=== PATIENT | female | born 1945 | race Caucasian/White ===

== ENCOUNTER 2016-11-25 03:35 | Emergency (ER) | payer MEDICARE, OTHER ==
[2016-11-25] MEDS ORDERED: Sodium Chloride 0.9% 1,000 ML IV ONE ×2 (04:01→05:25)
[2016-11-25] MEDS ORDERED: Sodium Chloride 0.9% 10 ML Syringe FLUSH PRN (04:12)
[2016-11-25 04:43] VITALS: BP 142/69
--- NOTE | 2016-11-25 06:13 | EDM.PDOC ---
ED HPI SEIZURE COMPLAINT - General Chief Complaint: Syncope Stated Complaint: Syncopal spell, diarrhea Time Seen by Provider: 11/25/16 04:11 Source of Information: Reports: Patient History Limitations: Reports: No limitations - History of Present Illness INITIAL COMMENTS - FREE TEXT/NARRATIVE: Patient started taking a bowel prep yesterday afternoon for a scheduled colonoscopy on Tuesday. She really has felt fine throughout, however while sitting on her toilet this morning she had an episode in which she fainted and she fell. She did hit her head. She has no complaints today of headache. Some minimal complaints of nausea. No emesis, fever, chills, recent illness. She has no other complaints. Symptom Onset Date: 11/25/16 Symptom Onset Time: 04:00 Timing/Duration: Reports: intermittent Event Occurred (Where): home Event (Witnessed/Unwitnessed): witnessed Severity: mild Context: Reports: new/change in medications Pre Event Symptom(s): Reports: nausea/vomiting Event Symptoms: Reports: no other symptoms - Related Data Allergies/ADRs: Allergies Allergy/AdvReac Type Severity Reaction Status Date / Time No Known Allergies Allergy Verified 11/25/16 03:53 Home Meds: Home Meds Clopidogrel Bisulfate [Clopidogrel] 75 mg PO DAILY 07/02/14 [History] atorvaSTATin [Lipitor] 10 mg PO BEDTIME 07/02/14 [History] Aspirin [Halfprin] 81 mg PO DAILY 11/24/16 [History] Carvedilol 1 tab PO QPM 11/24/16 [History] Carvedilol 1.5 tab PO QAM 11/24/16 [History] Cholecalciferol (Vitamin D3) [Vitamin D3] 2,000 unit PO DAILY 11/24/16 [History] Lisinopril 10 mg PO DAILY 11/24/16 [History] Past Medical History HEENT History: Reports: Cataract, Other (see below) Other HEENT History: blepharitis Cardiovascular History: Reports: CAD, Heart Failure, Hypertension, Other (see below) Other Cardiovascular History: tachycardia. non-stemi Gastrointestinal History: Reports: Other (see below) Other Gastrointestinal History: anal fissure Musculoskeletal History: Reports: Other (see below) Other Musculoskeletal History: bone disorder Hematologic History: Reports: Other (see below) Other Hematologic History: thrombocytopenia - Past Surgical History GI Surgical History: Reports: Colonoscopy Female Surgical History: Reports: D&C Social & Family History - Tobacco Use Smoking Status *Q: Never Smoker Second Hand Smoke Exposure: No - Alcohol Use Days Per Week of Alcohol Use: 1 Number of Drinks Per Day: 1 Total Drinks Per Week: 1 - Recreational Drug Use Recreational Drug Use: No ED ROS GENERAL - Review of Systems Review Of Systems: See Below Constitutional: Reports: no symptoms HEENT: Reports: No symptoms Respiratory: Reports: No Symptoms Cardiovascular: Reports: No symptoms Endocrine: Reports: no symptoms GI/Abdominal: Reports: Nausea : Reports: no symptoms Musculoskeletal: Reports: no symptoms Skin: Reports: no symptoms Neurological: Reports: Syncope Psychiatric: Reports: No symptoms Hematologic/Lymphatic: Reports: no symptoms Immunologic: Reports: no symptoms - Physical Exam Exam: See Below Exam Limited By: No limitations General Appearance: alert, WD/WN, no apparent distress Eye Exam: bilateral eye: EOMI, PERRL Ears: normal TMs Nose: normal inspection Throat/Mouth: Normal inspection, Normal oropharynx Head Exam: atraumatic, normocephalic Neck: normal inspection, supple, non-tender, full range of motion Respiratory/Chest: no respiratory distress, lungs clear, normal breath sounds, no accessory muscle use, chest non-tender Cardiovascular: normal peripheral pulses, regular rate, rhythm, no edema, no gallop GI/Abdominal: normal bowel sounds, soft, non tender Neuro Exam (Abbreviated): alert, oriented, CN II-XII intact, normal cognition, normal gait Back Exam: normal inspection, full range of motion Extremities: normal inspection, normal range of motion, non-tender, normal capillary refill Psychiatric: normal affect, normal mood Skin Exam: Warm, Dry, Intact EKG INTERPRETATION EKG Date: 11/25/16 Time: 04:32 Rhythm: NSR [place]: normal P-wave: present QRS: normal ST-T: normal QT: normal Course - Vital Signs Last Recorded V/S: Last Vital Signs Temp 35 C L 11/25/16 03:41 Pulse 60 11/25/16 04:38 Resp 16 11/25/16 04:38 BP 142/69 H 11/25/16 04:38 Pulse Ox 98 11/25/16 04:38 - Orders/Labs/Meds Orders: Active Orders 24 hr Category Date Time Status EKG Documentation Completion [RC] DAILY Care 11/25/16 04:12 Ordered Sodium Chloride 0.9% [Normal Saline] 1,000 ml Med 11/25/16 05:25 Active IV ONETIME Sodium Chloride 0.9% [Saline Flush] Med 11/25/16 04:12 Ordered 10 ml FLUSH ASDIRECTED PRN Saline Lock Insert [OM.PC] Routine Oth 11/25/16 04:12 Ordered Medication Orders Sodium Chloride (Normal Saline) 1,000 mls @ 999 mls/hr IV ONETIME ONE Stop: 11/25/16 06:25 Last Admin: 11/25/16 05:20 Dose: 999 mls/hr Sodium Chloride (Saline Flush) 10 ml FLUSH ASDIRECTED PRN PRN Reason: Keep Vein Open Labs: Laboratory Tests 11/25/16 11/25/16 11/25/16 Range/Units 04:43 04:43 04:43 PT 11.2 (10.0-12.8) SEC INR 1.0 L (2.0-3.5) Sodium 144 (136-145) mmol/L Potassium 3.7 (3.5-5.1) mmol/L Chloride 108 H (98-107) mmol/L Carbon Dioxide 31 (21-32) mmol/L BUN 16 (7-18) mg/dL Creatinine 1.0 (0.55-1.02) mg/dL Est Cr Clr Drug Dosing 41.99 mL/min Estimated GFR (MDRD) 55 Glucose 95 (74-106) mg/dL Calcium 8.3 L (8.5-10.1) mg/dL Creatine Kinase 61 (26-192) U/L Troponin I < 0.017 (<=0.056) ng/mL C-Reactive Protein < 0.2 (<=0.9) mg/dL B-Natriuretic Peptide 304 H (<=125) pg/mL Meds: Medications Generic Name Dose Route Start Last Admin Trade Name Freq PRN Reason Stop Dose Admin Sodium Chloride 1,000 mls @ 999 mls/hr 11/25/16 05:25 11/25/16 05:20 Normal Saline IV 11/25/16 06:25 999 mls/hr ONETIME ONE Administration Sodium Chloride 10 ml 11/25/16 04:12 Saline Flush FLUSH ASDIRECTED PRN Keep Vein Open Discontinued Medications Generic Name Dose Route Start Last Admin Trade Name Freq PRN Reason Stop Dose Admin Sodium Chloride 1,000 mls @ 999 mls/hr 11/25/16 04:01 11/25/16 04:00 Normal Saline IV 11/25/16 05:01 999 mls/hr ONETIME ONE Administration Departure - Departure Time of Disposition: 06:19 Disposition: Home, Self-Care 01 Condition: good Clinical Impression: Vasovagal syncope Instructions: Syncope, [id number], Dehydration, Elderly, [id number] Forms: ED Department Discharge Additional Instructions: Make sure to sit for a bowel movement for a short period of time. Try not to "bear down" as this can cause similar symptoms. Please follow up with your primary provider as needed. Call the emergency room with any questions or concerns. - Problem List & Annotations (1) Vasovagal syncope SNOMED Code(s): 834223870, [id number] Code(s): R55 - SYNCOPE AND COLLAPSE Status: Acute Priority: Low Current Visit: Yes - Problem List Review Problem List Initiated/Reviewed/Updated: Yes - My Orders Last 24 Hours: My Active Orders 11/25/16 04:12 EKG Documentation Completion [RC] DAILY Sodium Chloride 0.9% [Saline Flush] 10 ml FLUSH ASDIRECTED PRN Saline Lock Insert [OM.PC] Routine 11/25/16 05:25 Sodium Chloride 0.9% [Normal Saline] 1,000 ml IV ONETIME - Assessment/Plan Last 24 Hours: My Active Orders 11/25/16 04:12 EKG Documentation Completion [RC] DAILY Sodium Chloride 0.9% [Saline Flush] 10 ml FLUSH ASDIRECTED PRN Saline Lock Insert [OM.PC] Routine 11/25/16 05:25 Sodium Chloride 0.9% [Normal Saline] 1,000 ml IV ONETIME Assessment:: vasovagal syncope Plan: Make sure to sit for a bowel movement for a short period of time. Try not to "bear down" as this can cause similar symptoms. Please follow up with your primary provider as needed. Call the emergency room with any questions or concerns.
== END 2016-11-25 06:34 | disposition home or self-care (01) ==
LOC: VM.ED 03:35
DX: R55 Syncope and collapse (principal); I25.10 Atherosclerotic heart disease of native coronary artery without angina pectoris; I11.0 Hypertensive heart disease with heart failure; I50.9 Heart failure, unspecified; Z79.899 Other long term (current) drug therapy
CPT/HCPCS: 36415; 80048; 82550; 83880; 84484; 85610; 86140; 93005; 96360; 96361; 99285; J7030

== ENCOUNTER 2016-11-26 09:33 | Day surgery (SDC) | payer MEDICARE, OTHER ==
[~2016-11-26 09:33] MED LIST: Lactated Ringers 1,000 ML IV SCH
[2016-11-26] MEDS ORDERED: Propofol 200 MG/20 ML SDV ONE ×2 (10:40→11:27)
[2016-11-26] MEDS ORDERED: fentaNYL 100 MCG/2 ML SDV ONE (10:40)
[2016-11-26 12:08] VITALS: BP 134/71
--- NOTE | 2016-11-29 09:42 | OR ---
PREOPERATIVE DIAGNOSIS: Screening colonoscopy, 10 year recheck. POSTOPERATIVE DIAGNOSIS: Normal colonoscopic exam. PROCEDURE PROPOSED: Total flexible colonoscopy. INDICATION: This is a 71-year-old female, who comes in for 10 year screening colonoscopy. She had one previously about 11 years ago. She denies any symptomatology and she has a negative family history for colon cancer. TECHNIQUE: The patient was brought to the endoscopy suite for the procedure. She was placed in the left lateral decubitus position. She was given propofol per [employer] for sedation. The flexible video colonoscope was then passed transanally and under visualization advanced to the cecum confirmed with the ileocecal valve and appendiceal orifice landmarks. The ascending, transverse, descending colon were unremarkable. The sigmoid colon did not reveal any diverticular disease. The rectal mucosa was normal. There were no signs of any polyps, colitis, or other abnormalities, and the scope was then withdrawn. She tolerated the procedure well. FINAL IMPRESSION: Normal colonoscopic exam. PLAN: The patient is reassured. I felt that she should consider one more examination in her lifetime and 10 years from now. SCM: 11/26/2016 11:44:35 MODL: 11/26/2016 19:18:21 /[id number]
== END 2016-11-26 12:55 | disposition home or self-care (01) ==
LOC: VM.SDS 09:33
PROVIDERS: ATTEND Surgery
DX: Z12.11 Encounter for screening for malignant neoplasm of colon (principal); I25.10 Atherosclerotic heart disease of native coronary artery without angina pectoris; I25.83 Coronary atherosclerosis due to lipid rich plaque; I10 Essential (primary) hypertension; I50.32 Chronic diastolic (congestive) heart failure; M89.9 Disorder of bone, unspecified; D69.6 Thrombocytopenia, unspecified; I47.9 Paroxysmal tachycardia, unspecified; I25.2 Old myocardial infarction; Z79.899 Other long term (current) drug therapy; Z79.01 Long term (current) use of anticoagulants; Z79.82 Long term (current) use of aspirin
CPT/HCPCS: 00810; G0121; J2704; J7120; J3010

== ENCOUNTER 2022-01-08 17:56 | Emergency (ER) | payer MEDICARE, OTHER ==
[2022-01-08 18:44] VITALS: BP 154/79; PULSE 72
[2022-01-08 19:01] LABS: CHLORIDE,CL 101 mmol/L (98-107); SODIUM,NA 139 mmol/L (136-145)
[2022-01-08 19:03] LABS: ANION GAP 15.8 mmol/L (5-15)
== END 2022-01-08 19:22 | disposition home or self-care (01) ==
LOC: VM.ED 17:56
DX: R00.2 Palpitations (principal); R20.2 Paresthesia of skin; I11.0 Hypertensive heart disease with heart failure; I50.9 Heart failure, unspecified; I25.10 Atherosclerotic heart disease of native coronary artery without angina pectoris; Z79.899 Other long term (current) drug therapy; Z79.82 Long term (current) use of aspirin
CPT/HCPCS: 36415; 70450; 71046; 80053; 82550; 83615; 84484; 85025; 86140; 93005; 93010; 99284; 99285-25

== ENCOUNTER 2025-01-01 09:10 | Emergency (ER) | payer MEDICARE, OTHER ==
[2025-01-01 09:40] LABS: BASOPHILS ABSOLUTE AUTO 0.1 x10^3/uL (0.0-0.2); BASOPHILS PERCENT AUTO 0.8 % (0.2-1.2); EOSINOPHILS ABSOLUTE AUTO 0.1 x10^3/uL (0.0-0.5); EOSINOPHILS PERCENT AUTO 1.6 % (0.0-4.0); HEMATOCRIT 41.8 % (33.0-47.0); HEMOGLOBIN 13.7 g/dL (12.0-16.0); IMMATURE GRAN ABSOLUTE AUTO 0.01 x10^3/uL (0.00-0.07); LYMPHOCYTES ABSOLUTE AUTO 1.6 x10^3/uL (1.0-4.8); LYMPHOCYTES PERCENT AUTO 25.7 % (25.0-50.0); MEAN CORPUSCULAR HEMOGLOBIN 30.8 pg (26.0-32.0); MEAN CORPUSCULAR HGB CONC 32.8 g/dL (32.0-36.0); MEAN CORPUSCULAR VOLUME 93.9 fL (78.0-93.0); MONOCYTES ABSOLUTE AUTO 0.6 x10^3/uL (0.0-0.8); MONOCYTES PERCENT AUTO 9.4 % (2.0-11.0); NEUTROPHILS ABSOLUTE AUTO 3.8 x10^3/uL (1.8-7.7); NEUTROPHILS PERCENT AUTO 62.3 % (50.0-80.0); PLATELET COUNT,PLT 127 x10^3/uL (130-400); RED BLOOD CELL COUNT 4.45 x10^6/uL (4.00-5.50); WHITE BLOOD CELL COUNT,WBC 6.1 x10^3/uL (4.0-10.0)
[2025-01-01] MEDS: Sodium Chloride 0.9% 1,000 ML IV ONE (09:55)
[2025-01-01 10:05] LABS: A/G RATIO 1.09; ALBUMIN 3.5 g/dL (3.4-5.0); BILIRUBIN TOTAL 0.6 mg/dL (0.2-1.0); CREATININE 1.1 mg/dL (0.55-1.02); POTASSIUM,K 4.3 mmol/L (3.5-5.1); PROTEIN TOTAL,TP 6.7 g/dL (6.4-8.2)
[2025-01-01 10:20] LABS: ANION GAP 7.3 mmol/L (5-15); EST CRCL DRUG DOSING (CG) 33.87 mL/min
[2025-01-01] MEDS: Adenosine 6 MG/2 ML SDV IVPUSH ONE (11:30)
[2025-01-01 12:51] VITALS: BP 128/75; PULSE 70
== END 2025-01-01 12:20 | disposition home or self-care (01) ==
LOC: VM.ED 09:10
DX: I47.10 Supraventricular tachycardia, unspecified (principal); I25.10 Atherosclerotic heart disease of native coronary artery without angina pectoris; I11.0 Hypertensive heart disease with heart failure; I50.9 Heart failure, unspecified; Z79.82 Long term (current) use of aspirin; Z79.899 Other long term (current) drug therapy
CPT/HCPCS: 36415; 70450; 80053; 82947; 84484; 85025; 93005; 93010; 96361; 96374; 99284; 99285; J0153; J7030

== ENCOUNTER 2025-05-29 21:35 | Observation (INO) | payer MEDICARE, OTHER ==
[2025-05-29] MEDS ORDERED: Sodium Chloride 0.9% 10 ML Syringe FLUSH PRN (21:49)
[2025-05-29 21:57] LABS: BASOPHILS ABSOLUTE AUTO 0.0 x10^3/uL (0.0-0.2); BASOPHILS PERCENT AUTO 0.5 % (0.2-1.2); EOSINOPHILS ABSOLUTE AUTO 0.1 x10^3/uL (0.0-0.5); EOSINOPHILS PERCENT AUTO 2.2 % (0.0-4.0); IMMATURE GRAN ABSOLUTE AUTO 0.01 x10^3/uL (0.00-0.07); IMMATURE GRAN PERCENT AUTO 0.20 % (0.00-0.43); LYMPHOCYTES ABSOLUTE AUTO 2.3 x10^3/uL (1.0-4.8); LYMPHOCYTES PERCENT AUTO 36.0 % (25.0-50.0); MONOCYTES ABSOLUTE AUTO 0.7 x10^3/uL (0.0-0.8); MONOCYTES PERCENT AUTO 11.1 % (2.0-11.0); NEUTROPHILS ABSOLUTE AUTO 3.2 x10^3/uL (1.8-7.7); NEUTROPHILS PERCENT AUTO 50.0 % (50.0-80.0); PLATELET COUNT,PLT 138 x10^3/uL (130-400); RED BLOOD CELL COUNT 4.20 x10^6/uL (4.00-5.50); WHITE BLOOD CELL COUNT,WBC 6.3 x10^3/uL (4.0-10.0)
[2025-05-29 22:16] LABS: A/G RATIO 0.97; ALANINE AMINOTRANSFERASE,ALT 18 U/L (14-59); ASPARTATE AMNIOTRANSFERASE,AST 12 U/L (15-37); BILIRUBIN TOTAL 0.4 mg/dL (0.2-1.0); BLOOD UREA NITROGEN,BUN 18 mg/dL (7-18); CARBON DIOXIDE,CO2 27 mmol/L (21-32); CHLORIDE,CL 106 mmol/L (98-107); CREATINE KINASE,CK 48 U/L (26-192); CREATININE 1.1 mg/dL (0.55-1.02); GLUCOSE RANDOM 117 mg/dL (70-99); POTASSIUM,K 3.8 mmol/L (3.5-5.1); PROTEIN TOTAL,TP 5.9 g/dL (6.4-8.2); SODIUM,NA 141 mmol/L (136-145)
[2025-05-29 22:17] LABS: ESTIMATED GFR 51 mL/min (>=60)
[2025-05-30] MEDS: Cyanocobalamin (Vitamin B12) 1,000 MCG Tab PO SCH (08:49)
[2025-05-30] MEDS: Cholecalciferol (Vitamin D3) 25 MCG Tab PO SCH (08:49)
[2025-05-30 12:55] VITALS: BP 107/55; PULSE 67
== END 2025-05-30 12:45 | disposition home or self-care (01) ==
LOC: VM.ED 21:35 → VM.MS 05-30 00:39
PROVIDERS: ADMIT Internal Medicine; ATTEND Family Medicine
DX: I47.19 Other supraventricular tachycardia (principal); R55 Syncope and collapse; I25.10 Atherosclerotic heart disease of native coronary artery without angina pectoris; I11.0 Hypertensive heart disease with heart failure; I50.32 Chronic diastolic (congestive) heart failure; N28.89 Other specified disorders of kidney and ureter; M81.0 Age-related osteoporosis without current pathological fracture; E53.8 Deficiency of other specified B group vitamins; Z88.1 Allergy status to other antibiotic agents; Z88.8 Allergy status to other drugs, medicaments and biological substances; Z79.82 Long term (current) use of aspirin; Z79.899 Other long term (current) drug therapy
CPT/HCPCS: 36415; 80053; 82550; 83735; 84484; 85025; 93005; 93010; 99236-GT; 99284; 99285; A9270-GY; G0378; Q3014